=== PATIENT | male | born 1970 | race Two or more races ===

== ENCOUNTER 2018-07-02 04:02 | Emergency (ER) | payer MEDICAID ==
[~2018-07-02] VITALS: Ht 172.7 cm; Wt 125.6 kg
[2018-07-02] MEDS ORDERED: HYDROCODONE/APAP 10-325 MG TABLET PO ONE (04:30)
[2018-07-02] MEDS ORDERED: HYDROCODONE/APAP 10-325 MG TABLET ONE (04:33)
--- NOTE | 2018-07-02 04:37 | NUR ---
Pt. ambulated into ED w/ c/o bilat. foot pain 02/03, reports hx of diabetes, CHF, and "heart valve problem", denies SOB/CP/BOOKER/F/C/N/V/D,
--- NOTE | 2018-07-02 04:41 | NUR ---
Patient discharged to home in stable conditon. Written and verbal after care instructions given. Patient verbalizes understanding of instructions. Pt. d/c per MD order, d/c papers signed, all belongings w/ pt., instructed not to drive, ambulated off unit w/ steady gait, left w/ friend in private vehicle, no acute distress,
== END 2018-07-02 04:43 | disposition home or self-care (01) ==
LOC: ER 04:03
DX: E11.42 Type 2 diabetes mellitus with diabetic polyneuropathy (principal); I11.0 Hypertensive heart disease with heart failure; I50.9 Heart failure, unspecified
CPT/HCPCS: A4663